=== PATIENT | female | born 1960 | race Native Hawaiian/Other Pacific Islander ===

== ENCOUNTER 2017-03-20 09:20 | Outpatient (CLI) | payer BC ==
[~2017-03-20 09:20] MED LIST: ACET5TAB36 PO; ADIPEX PO; AMOX500C85 PO; CAND32TA PO; CELEBREX200 MG PO; MEDROL DOSEPAK4 MG OR; NASONEX50 MCG/AC; QSYMIA OR; TESSALON200 MG OR; TRIA75TA61 PO; ULTRAM50 MG OR
== END 2017-03-20 11:00 | disposition home or self-care (01) ==
LOC: MAMMO 09:20
DX: Z12.31 Encounter for screening mammogram for malignant neoplasm of breast (principal); Z13.820 Encounter for screening for osteoporosis

== ENCOUNTER 2018-10-18 12:53 | Outpatient (CLI) | payer BC | END 2018-10-18 23:47 | disposition home or self-care (01) | LOC: MRI 12:53 | DX: M54.16 Radiculopathy, lumbar region (principal) ==

== ENCOUNTER 2019-02-07 08:45 | Outpatient (CLI) | payer BC | END 2019-02-07 19:45 | disposition home or self-care (01) | LOC: MAMMO 08:45 | DX: Z12.31 Encounter for screening mammogram for malignant neoplasm of breast (principal) ==

== ENCOUNTER 2019-04-29 09:32 | Outpatient (CLI) | payer BC | END 2019-04-29 22:56 | disposition home or self-care (01) | LOC: RAD 09:32 | DX: Z13.820 Encounter for screening for osteoporosis (principal) ==

== ENCOUNTER 2021-02-12 19:21 | Emergency (ER) | payer BC ==
[~2021-02-12] VITALS: Ht 172.7 cm; Wt 107.5 kg
[2021-02-12 20:50] VITALS: BP 113/67; TEMP 98
== END 2021-02-12 20:50 | disposition home or self-care (01) ==
LOC: ED 19:21
DX: S93.692A Other sprain of left foot, initial encounter (principal); S92.322A Displaced fracture of second metatarsal bone, left foot, initial encounter for closed fracture; S92.332A Displaced fracture of third metatarsal bone, left foot, initial encounter for closed fracture; W18.39XA Other fall on same level, initial encounter; Y92.89 Other specified places as the place of occurrence of the external cause
CPT/HCPCS: 96372; 99283; J1885